=== PATIENT | male | born 1995 | race Caucasian/White ===

== ENCOUNTER 2024-03-23 05:21 | Emergency (ER) | payer OTHER ==
[2024-03-23] MEDS ORDERED: Morphine 4 MG/ML VIAL ONE (06:24)
[2024-03-23] MEDS ORDERED: Promethazine HCl 25 MG/ML VIAL ONE (06:24)
[2024-03-23] MEDS ORDERED: Sodium Chloride 0.9% 50 ML ONE (06:24)
[2024-03-23] MEDS ORDERED: Sodium Chloride 0.9% 2,000 ML ONE (06:25)
[2024-03-23 06:27] LABS: Band 2 % (5-11); Hematocrit 42.2 % (42.0-52.0); Hemoglobin 14.7 g/dL (14.0-18.0); Lymphocytes 15 % (21-51); MDiff Complete? YES; Mean Corpuscular HGB CONC 34.8 g/dL (32.0-36.0); Mean Corpuscular Hemoglobin 32.7 pg (27.0-31.0); Mean Corpuscular Volume 93.9 fl (78.0-98.0); Mean Platelet Volume 7.3 fL (7.4-10.4); Monocytes 10 % (0-10); Neutrophil 73 % (42-75); Platelet Count 250 10x3/uL (130-400); RBC Distribution Width 10.7 % (11.5-14.5); Red Blood Cell (RBC) Count 4.49 mill/uL (4.70-6.10); White Blood Cell (WBC) Count 6.3 10x3/uL (4.8-10.8)
[2024-03-23 06:42] LABS: ALT (SGPT) 21 U/L (Less than 45); AST (SGOT) 26 U/L (11-34); Albumin 4.4 g/dL (3.1-4.5); Alkaline Phosphatase 51 U/L (40-110); Anion Gap 16 mmol/L (10-20); BUN (Urea Nitrogen) 9 mg/dL (8.9-20.6); Bilirubin, Total 1.2 mg/dL (0.3-1.2); CK (CPK) 213 U/L (30-200); Calc. Creatinine Clearance 0 mL/min (70-130); Calcium 9.2 mg/dL (7.8-10.44); Carbon Dioxide 23 mmol/L (22-29); Chloride 105 mmol/L (98-107); Estimated GFR 103; Globulin 2.4 g/dL (2.4-3.5); Glucose 94 mg/dL (70-105); Magnesium 1.7 mg/dL (1.6-2.6); Potassium 3.2 mmol/L (3.5-5.1); Protein, Total 6.8 g/dL (6.0-8.3); Sodium 141 mmol/L (136-145)
[2024-03-23 06:44] LABS: Troponin I Less than 0.010 ng/mL (< 0.028)
[2024-03-23] MEDS ORDERED: Potassium Chloride 10 MEQ TAB ONE (07:41)
[2024-03-23] MEDS ORDERED: Pantoprazole 40 MG VIAL ONE (07:42)
[2024-03-23] MEDS ORDERED: Iopamidol 370 76% 100 ML VIAL ONE (09:00)
[2024-03-23] MEDS ORDERED: Ondansetron PF 4 MG/2 ML Vial ONE (09:22)
== END 2024-03-23 09:45 | disposition home or self-care (01) ==
LOC: MADERS 05:21
DX: K52.9 Noninfective gastroenteritis and colitis, unspecified (principal); F17.290 Nicotine dependence, other tobacco product, uncomplicated
CPT/HCPCS: 74177; 80053; 82550; 83605; 83735; 84484; 85025; 96361; 96374; 96375; J2270; J2405; J2470; J2550; J7030; Q9967